=== PATIENT | male | born 1990 | race Caucasian/White ===

== ENCOUNTER → 2016-09-18 | Outpatient (CLI) | payer MEDICAID | LOC: CIMAGING 17:17 | PROVIDERS: ATTEND Family Medicine | DX: J40 Bronchitis, not specified as acute or chronic (principal); M41.9 Scoliosis, unspecified; K44.9 Diaphragmatic hernia without obstruction or gangrene | CPT/HCPCS: 71022-PO ==

== ENCOUNTER → 2017-07-18 | Outpatient (CLI) | payer MEDICAID | LOC: CIMAGING 10:28 | PROVIDERS: ATTEND Family Medicine | DX: J20.9 Acute bronchitis, unspecified (principal); M41.9 Scoliosis, unspecified; J98.6 Disorders of diaphragm; F88 Other disorders of psychological development; R91.8 Other nonspecific abnormal finding of lung field | CPT/HCPCS: 71046-PO ==

== ENCOUNTER → 2017-09-13 | Outpatient (CLI) | payer MEDICAID | LOC: CIMAGING 10:27 | PROVIDERS: ATTEND Family Medicine | DX: R10.9 Unspecified abdominal pain (principal); G80.0 Spastic quadriplegic cerebral palsy; G40.813 Lennox-Gastaut syndrome, intractable, with status epilepticus | CPT/HCPCS: 36415-PO; 71045-PO; 74018-PO; 80177-90 ==

== ENCOUNTER → 2017-12-17 | Outpatient (CLI) | payer MEDICAID ==
[~2017-12-17] MED LIST: IOPAMIDOL (ISOVUE-300) 100 ML BTL ONE
== END ==
LOC: CIMAGING 08:37
PROVIDERS: ATTEND Physician Assistant Medical
DX: R10.84 Generalized abdominal pain (principal); K44.9 Diaphragmatic hernia without obstruction or gangrene; N20.0 Calculus of kidney; Z87.19 Personal history of other diseases of the digestive system
CPT/HCPCS: 74177-PO; Q9967

== ENCOUNTER 2018-03-17 02:49 | Inpatient (IN) | payer MEDICAID ==
[2018-03-17] MEDS ORDERED: ALBUTEROL 3 ML DEYVIAL IH ONE (03:17)
[2018-03-17] MEDS ORDERED: NS 1,000 ML IV ONE (03:17)
--- NOTE | 2018-03-17 03:24 | EDPHY ---
H & P Stated Complaint: Disabled son, kavita, ? breathing problems Time Seen by Provider: 03/17/18 02:55 HPI/ROS: CHIEF COMPLAINT: Difficulty breathing, cough HISTORY OF PRESENT ILLNESS: This is a 28-year-old male with history of cerebral palsy, seizures, developmental delay, nonverbal who presents with his mother who is his full-time caregiver. Mother is concerned that the patient has had a cough starting at 4:00 a.m. This afternoon, 12 hr ago. He seems to have some difficulty breathing with nasal flaring and wet mucousy cough. She also noted that he was shaking and felt like he had a fever. She did give him some Tylenol prior to presentation. He has had a mild cough for about a week. No vomiting although the patient did have an episode of what sounds almost like regurgitation. No diarrhea. Patient has had prior history of pneumonia on several occasions. He did receive his influenza vaccination on February 27. REVIEW OF SYSTEMS: Unable to be obtained secondary to the patient's clinical condition. Mother reports she feels his mentation is at its baseline. PAST MEDICAL HISTORY: Cerebral palsy, history of seizures, severe developmental delay, nonverbal, nonambulatory. History of Igor fundoplication. Peg tube is in place. Patient takes no liquids orally. SOCIAL HISTORY: Lives with the mother who is his full-time caregiver. No smoke exposure. VITAL SIGNS Reviewed by me. The tachycardia between [id number], O2 sat 85%. Blood pressure 94/67. GENERAL: Patient is in a wheelchair. He is nonverbal. Extreme contractures of the upper extremities. Paradoxical breathing is noted. HEENT: Atraumatic. Eyes: Dysconjugate gaze. Pupils equal round reactive to light. Conjunctival injection bilaterally. No icterus. Mouth: Slightly dry mucous membranes. Thick mucus noted in the posterior pharynx. Neck: supple with no adenopathy. LUNGS: Coarse breath sounds throughout, no wheezes noted. No rales. Scattered rhonchi. CARDIAC: Tachycardic, regular. No rubs murmurs or gallops. ABDOMEN: Soft, no obvious tenderness. Peg tube in place. BACK: No obvious trauma. EXTREMITIES: No trauma. No edema. Contractures. NEURO: Alert, nonverbal. Intermittent generalized shaking, does not appear to be seizures. Intermittent nystagmus. SKIN: Warm to the touch. No rash noted. PSYCHIATRIC: Unable to assess. Source: Family Exam Limitations: Other - Personal History Current Tetanus/Diphtheria Vaccine: Unsure Current Tetanus Diphtheria and Acellular Pertussis (TDAP): Unsure - Medical/Surgical History Hx Asthma: No Hx Chronic Respiratory Disease: No Hx Diabetes: No Hx Cardiac Disease: No Hx Renal Disease: No Hx Cirrhosis: No Hx Alcoholism: No Hx HIV/AIDS: No Hx Splenectomy or Spleen Trauma: No Other PMH: Cerebral palsy, seizures, recurrent infections, recurrent intestinal problems; CPAP at night. Previous pneumonia - Social History Smoking Status: Never smoked Constitutional: Initial Vital Signs Temperature (C) 36.9 C 03/17/18 02:49 Heart Rate 105 H 03/17/18 02:49 Respiratory Rate 20 03/17/18 02:49 Blood Pressure 94/67 L 03/17/18 02:49 O2 Sat (%) 91 L 03/17/18 02:49 O2 Delivery Mode Room Air Allergies/Adverse Reactions: Penicillins Allergy (Mild, Verified 03/17/18 02:57) Rash Home Medications: Medication Instructions Recorded Baclofen 01/06/16 Banzel 01/06/16 Cetirizine 01/06/16 Cuvposa 01/06/16 FLUTICASONE PROPIONATE 01/06/16 Keppra 01/06/16 Miralax 17 gm (*) 01/06/16 Ondansetron HCl 01/06/16 Peptamen AF Liquid 01/06/16 Ranitidine HCl 01/06/16 Medical Decision Making - Diagnostics EKG Interpretation: 12-LEAD EKG: Please see the full report in [facility]. My interpretation: Sinus tachycardia. Imaging Results: Xray: Chest x-ray was obtained. I viewed the images myself on the PACS system. My interpretation of the images is: Difficult to interpret secondary to patient's body habitus. No obvious infiltrate identified by myself. The radiology interpretation is: Pending at this time. Imaging: I viewed and interpreted images myself ED Course/Re-evaluation: Severe Sepsis/Septic Shock Care Note The patient presents to the ED with respiratory infection identified as an acute infection. The patient did have evidence of end-organ dysfunction and met criteria for severe sepsis. This condition was identified by myself at 4: 00 a.m.. The patients vital signs are 126/77, 108, 94% on , 37.4 rectal. The patient has a venous lactic acid performed within 3 hours of the identification of severe sepsis which was found to be 3.7. The patient has blood cultures drawn and received levofloxacin, per the severe sepsis treatment protocol. The initial lactate was elevated and rechecked within 6 hours of the identification time of severe sepsis and found to be: 2.1 Review of the patient's old records demonstrates that in the past he has been admitted for similar symptoms of bronchitis/possible aspiration with respiratory distress and no pneumonia on chest x-ray. Course was discussed with Dr. Mora. Patient will be [facility] to [facility]. Bolus of fluids was begun. Patient received levofloxacin as he is allergic to PCN. Repeat lactic acid: 2.1 White count 12.4, bilirubin normal, creatinine 0.3. D-dimer less than 100. Bedside troponin 0.00. Urine dip: Trace leukocyte esterase. Urine microscopic ordered at [facility]. Urine culture pending. Blood cultures pending. Differential Diagnosis: Differential diagnosis for the patient's tactile fever and cough was considered including but not limited to viral versus bacterial bronchitis, asthma, aspiration, pulmonary emboli, upper respiratory infection, lower respiratory infection, and bronchospasm. Consult/Admit Bed Type: Dr. Meredith Polanco, [facility] surg - Data Points Laboratory Results: 03/17/18 03/17/18 03/17/18 03:42 03:40 03:34 PT INR POC Sodium POC Potassium POC Chloride POC Total CO2 POC BUN POC Creatinine POC Glucose POC Lactic Acid Prieto 3.7 mmol/L H mmol/L (0.7-2.1) POC Calcium POC Total Bilirubin 0.7 mg/dL mg/dL (0.1-1.4) POC GGT 115 IU/L H IU/L (5-65) POC AST 29 IU/L IU/L (17-59) POC ALT 16 IU/L L IU/L (21-72) POC Alk Phosphatase 97 IU/L IU/L (38-126) POC Troponin I 0.00 ng/mL ng/mL (0.00-0.08) POC Total Protein 7.7 g/dL g/dL (6.3-8.2) POC Albumin 3.7 g/dL g/dL (3.5-5.0) POC Amylase 56 IU/L IU/L (30-110) Urine RBC Urine WBC Ur Epithelial Cells 03/17/18 03/17/18 03/17/18 03:30 03:30 03:26 PT 13.8 SEC SEC (12.0-15.0) INR 1.04 (0.83-1.16) POC Sodium 136 mEq/L mEq/L (135-145) POC Potassium 4.0 mEq/L mEq/L (3.3-5.0) POC Chloride TNP POC Total CO2 28 mEq/L mEq/L (22-31) POC BUN 5 mg/dL L mg/dL (7-23) POC Creatinine 0.3 mg/dL L mg/dL (0.7-1.3) POC Glucose 102 mg/dL H mg/dL (70-100) POC Lactic Acid Prieto POC Calcium 9.5 mg/dL mg/dL (8.5-10.4) POC Total Bilirubin POC GGT POC AST POC ALT POC Alk Phosphatase POC Troponin I POC Total Protein POC Albumin POC Amylase Urine RBC NONE SEEN /hpf /hpf (0-3) Urine WBC 1-3 /hpf /hpf (0-3) Ur Epithelial Cells NONE SEEN /lpf /lpf (NONE-1+) Medications Given: Levofloxacin/Dextrose (Levaquin 750 Mg (Premix)) 150 mls @ 100 mls/hr IV EDNOW ONE PRN Reason: Protocol Stop: 03/17/18 05:40 Last Admin: 03/17/18 04:26 Dose: 150 mls Discontinued Medications Albuterol (Proventil Neb) 3 ml IH EDNOW ONE Stop: 03/17/18 03:18 Last Admin: 03/17/18 03:29 Dose: 3 ml Sodium Chloride (Ns) 1,000 mls @ 0 mls/hr IV ONCE ONE; Wide Open PRN Reason: Protocol Stop: 03/17/18 03:18 Last Admin: 03/17/18 03:30 Dose: 1,000 mls Sodium Chloride (Ns) 1,700 mls @ 3,400 mls/hr 30 ml/kg infuse over 30 min ( 1700 ml) IV EDNOW ONE PRN Reason: Protocol Stop: 03/17/18 04:45 Last Admin: 03/17/18 04:26 Dose: 1,700 mls Point of Care Test Results: CBC CBC Collection Date 03/17/18 CBC Collection Time 03:23 WBC 12.4 RBC 5.75 HGB 17.0 HCT 49.9 PLT 221 Neut # 10.8 Neut 87.1 LYMPH # 1.0 LYMPH 8.2 Other WBC # 0.6 Other WBC 4.7 MCV 86.8 Chemistry 03/17/18 03/17/18 03/17/18 03:42 03:34 03:26 POC Sodium 136 mEq/L mEq/L (135-145) POC Potassium 4.0 mEq/L mEq/L (3.3-5.0) POC Chloride TNP POC Total CO2 28 mEq/L mEq/L (22-31) POC BUN 5 mg/dL L mg/dL (7-23) POC Creatinine 0.3 mg/dL L mg/dL (0.7-1.3) POC Glucose 102 mg/dL H mg/dL (70-100) POC Calcium 9.5 mg/dL mg/dL (8.5-10.4) POC Total Bilirubin 0.7 mg/dL mg/dL (0.1-1.4) POC GGT 115 IU/L H IU/L (5-65) POC AST 29 IU/L IU/L (17-59) POC ALT 16 IU/L L IU/L (21-72) POC Alk Phosphatase 97 IU/L IU/L (38-126) POC Troponin I 0.00 ng/mL ng/mL (0.00-0.08) POC Total Protein 7.7 g/dL g/dL (6.3-8.2) POC Albumin 3.7 g/dL g/dL (3.5-5.0) POC Amylase 56 IU/L IU/L (30-110) Blood Gas/Lactic Acid-Venous 03/17/18 03:40 POC Lactic Acid Prieto 3.7 mmol/L H mmol/L (0.7-2.1) D-Dimer D-Dimer Collection Date 03/17/18 D-Dimer Collection Time 03:23 D-Dimer (ng/ml) <100 Influenza PCR Flu Nasal Swab Collection Date 03/17/18 Flu Nasal Swab Collection Date 03/17/18 Flu Nasal Swab Collection Time 03:30 Flu Nasal Swab Collection Time 03:30 Influenza A Result Not Detected Influenza A Result Not Detected Influenza B Result Not Detected Influenza B Result Not Detected Liver Function Tests LFT Collection Date 03/17/18 LFT Collection Time 03:23 Urine Dip Collection Date 01/13/19 Collection Time 04:14 Specific [place] (1.002-1.030) 1.015 PH (5.0-7.5) 7.0 Leukocytes (Negative) Trace Nitrites (Negative) Negative Protein (Negative) Trace Glucose (Negative) Negative Ketones (Negative) Negative Urobilnogen (0.2-1.0 EU) 1.0 Bilirubin (Negative) Negative Blood (Negative) Negative Departure - Departure Disposition: [facility] Inpatient Acute Clinical Impression: Respiratory distress, Hypoxemia Fever Qualifiers: Fever type: unspecified Qualified Code(s): R50.9 - Fever, unspecified Condition: Fair
[2018-03-17] MEDS ORDERED: NS 1,700 ML IV ONE (04:16)
[2018-03-17 05:12] LABS: INR 1.04 (0.83-1.16); PROTIME(PATIENT) 13.8 SEC (12.0-15.0)
[2018-03-17] MEDS ORDERED: ONDANSETRON 4 MG/2 ML VIAL IVP PRN (08:28)
[2018-03-17] MEDS ORDERED: ONDANSETRON DISINTEGRATING 4 MG TAB PO PRN (08:28)
--- NOTE | 2018-03-17 09:28 | GHP ---
DATE OF ADMISSION: 03/17/2018 CHIEF COMPLAINT: Shortness of breath and cough. HISTORY OF PRESENT ILLNESS: A 28-year-old male with a history of cerebral palsy. He is essentially non-communicative. His mother states that over the last 12 hours, he developed a gurgling type noise , as well as in his lungs with some cough and also some noise in his belly. This is like previous pn eumonias. No noted fever. REVIEW OF SYSTEMS: Unable to be obtained, secondary to the patient's state. Mother says that he is having bowel movements normally. PAST MEDICAL HISTORY: 1. Cerebral palsy. 2. GERD. 3. Scoliosis. 4. Obstructive sleep apnea. 5. Sheldon-Gastaut syndrome with seizure disorder. MEDICATIONS: Reviewed. SOCIAL HISTORY: Lives with his mother. FAMILY HISTORY: Chronic kidney disease. PHYSICAL EXAMINATION: VITAL SIGNS: Afebrile, blood pressure is 126/71, heart rate 116, and oxygen s aturation 100% on 4 L. GENERAL: The patient is with obvious cerebral palsy. In no apparent distres s. HEENT: Moist mucous membranes. NECK: Supple. LUNGS: Some scattered rhonchi bilaterally. CAR DIOVASCULAR: Regular rate and rhythm. No murmurs or gallops. ABDOMEN: Positive bowel sounds. Sof t, nontender, and nondistended. No hepatosplenomegaly. EXTREMITIES: No clubbing, cyanosis, or catherine a. SKIN: Without rash. Warm, dry, and intact. LABS: was elevated at 3.7. Chemistries normal. LFTs were essentially normal. No CBC wa s done. IMAGING: Chest x-ray is very difficult to interpret, as he is rotated with some lungs both compresse d. Rods are noted in the spine. ASSESSMENT: This is a 28-year-old male with cerebral palsy, with probable pneumonia. PLAN: 1. Pneumonia. We will treat with Levaquin at this point. Aspiration can be a consideration, but we will see how he does with just on Levaquin community-acquired pneumonia. 2. Cerebral palsy. 3. Sepsis. The patient's lactate was elevated coming in. He has received IV fluids per protocol. Lactate has now normalized. We will check another 1 though to make sure this continues to normalize. His tachycardia, I look back at [place], it looks like he is tachycardic at times, even in the off ice, and so I would not use that as a marker of sepsis. /[id number]/MODL
[2018-03-17 09:32] LABS: PLATELET COUNT 195 10^3/uL (150-400)
[2018-03-17] MEDS: IPRATROPIUM/ALBUTEROL 3 ML DEYVIAL IH SCH ×3 (11:03→20:07)
--- NOTE | 2018-03-17 11:34 | PDMN ---
Medical Necessity Medical necessity: Pt meets INPT criteria per MD as of 03/17/18 and [id number] Pneumonia, Community Acquired (est. LOS >2 MN for eval/tx of pneumonia, SOB, elevated lactate, r/o sepsis).
--- NOTE | 2018-03-17 11:57 | ASMTCMCOM ---
CM Note CM Note Notes: Patient admitted w SOB and cough; imaging shows PNA. He has a hx of cerebral palsy. I spoke with his mother Umu who is primary caregiver. She receives compensation through the [employer] Family Caregiver Program to be patient's MD DO [facility]. Her mother is also a caregiver for patient, compensated through the [employer] program. They do a great job. I anticipate that patient will d/c home with them when medically stable. Date Signed: 03/17/2018 11:56 AM Electronically Signed By:Alysia Prakash RN
[2018-03-17] MEDS: ENOXAPARIN 30 MG/0.3 ML SYR SC SCH (12:50)
[2018-03-17] MEDS: guaiFENesin 200 MG/10 ML UDL PO SCH ×3 (12:51→21:51)
--- NOTE | 2018-03-17 14:05 | HOSPPROG ---
Hospitalist Progress Note Assessment/Plan: Chito is a 28 y/o male w cerebral palsy. He is non-communicative. His mom noted he was making some gurgling type noises and brought him to the ER for further evaluation. *probable pna -chest x ray is diff to interpret due to his body habitus -Levaquin -will check a procalcitonin level and respiratory panel -he is on 7 liters of oxygen -may need to get a CT of his chest if not improving *sepsis -lactate was elevated on admission and improved w hydration *tachycardia -hx of this *cerebral palsy -his mom does complete care for him at home *gerd -resumed PPI *MICHAEL -CPAP *Andrew-Gastaut syndrome w seizure disorder, -resumed home meds *Plan: met w the patient's mom w an tack cleaner, plan discussed and reviewed. Dietary to see to restart tube feedings. >30 minutes seeing patient and following up with family, nursing and caring for the patient. Subjective: Chito is non verbal, his mom says he is not in pain. Objective: Vital Signs Temp Pulse Resp BP Pulse Ox 36.7 C 98 20 119/80 7 L 03/17/18 07:31 03/17/18 11:03 03/17/18 11:03 03/17/18 07:31 03/17/18 11:03 Laboratory Results 03/17/18 09:24 03/17/18 09:24 03/16/18 03/17/18 03/18/18 05:59 05:59 05:59 Intake Total 1850 Balance 1850 PT 13.8 SEC (12.0-15.0) 03/17/18 03:30 INR 1.04 (0.83-1.16) 03/17/18 03:30 - Physical Exam Constitutional: chronically ill appearing Cardiovascular: regular rate and rhythym Respiratory: no respiratory distress, reduced air movement Gastrointestinal: normoactive bowel sounds Genitourinary: barba in urethra Skin: warm Musculoskeletal: other (legs in a frog like position) Neurologic: other (alert but stares) ICD10 Worksheet Patient Problems: Problems Problem Status Onset Fever Acute Hypoxemia Acute Respiratory distress Acute
[2018-03-17] MEDS ORDERED: DIAZEPAM TUBE PRN (14:29)
[2018-03-17] MEDS: NS 1,000 ML IV SCH (16:56)
[2018-03-17] MEDS: ACETAMINOPHEN 325 MG TAB PO PRN (19:02)
[2018-03-17] MEDS: RUFINAMIDE 200 MG TUBE SCH (21:37)
[2018-03-17] MEDS: GLYCOPYRROLATE 1 MG TUBE SCH (21:38)
[2018-03-17] MEDS: LEVETIRACETAM PO SCH (21:38)
[2018-03-17] MEDS: CLOBAZAM 10 MG TUBE SCH (21:39)
[2018-03-17] MEDS: CETIRIZINE 10 MG TAB TUBE SCH (21:51)
[2018-03-18] MEDS: IPRATROPIUM/ALBUTEROL 3 ML DEYVIAL IH SCH ×4 (03:52→20:22)
[2018-03-18] MEDS: NS 1,000 ML IV SCH (05:10)
--- NOTE | 2018-03-18 08:32 | HOSPPROG ---
Hospitalist Progress Note Assessment/Plan: Chito is a 28 y/o male w cerebral palsy. He is non-communicative. His mom noted he was making some gurgling type noises and brought him to the ER for further evaluation. *probable pna -chest x ray is diff to interpret due to his body habitus -Levaquin-will continue with such good improvement - procalcitonin level is low and respiratory panel is negative -he is on room air this morning *sepsis -lactate was elevated on admission and improved w hydration *tachycardia -hx of this *cerebral palsy -his mom does complete care for him at home -reviewed his care w the urban forester, he is not getting enough calories at home; will be sure her instructions are given on dc, also; she is recommending a feeding pump to help Chito get the calories he needs *gerd -resumed PPI *MICHAEL -CPAP *Andrew-Gastaut syndrome w seizure disorder, -resumed home meds *Plan: If continues to do well overnight, will dc home tomorrow Subjective: Chito is non-verbal. Per his mom he has been coughing up more secretions. Objective: Vital Signs Temp Pulse Resp BP Pulse Ox 36.3 C 51 L 16 96/59 L 98 03/18/18 08:00 03/18/18 08:00 03/18/18 08:00 03/18/18 08:00 03/18/18 08:00 Microbiology 03/17/18 15:17 Respiratory Panel (PCR) - Final Nasal, Sinus - Anaerobic Tube/Swab No Organism Detected By Pcr Laboratory Results 03/18/18 06:39 03/18/18 06:44 03/17/18 03/18/18 03/19/18 05:59 05:59 05:59 Intake Total 1850 1330 Balance 1850 1330 PT 13.8 SEC (12.0-15.0) 03/17/18 03:30 INR 1.04 (0.83-1.16) 03/17/18 03:30 - Physical Exam Constitutional: chronically ill appearing Cardiovascular: regular rate and rhythym Respiratory: no respiratory distress, reduced air movement, bronchial breath sounds Gastrointestinal: normoactive bowel sounds Genitourinary: barba in urethra Skin: warm Neurologic: other (alert) ICD10 Worksheet Patient Problems: Problems Problem Status Onset Fever Acute Hypoxemia Acute Respiratory distress Acute
[2018-03-18] MEDS: guaiFENesin 200 MG/10 ML UDL PO SCH ×3 (09:25→22:04)
[2018-03-18] MEDS: ENOXAPARIN 30 MG/0.3 ML SYR SC SCH (09:25)
[2018-03-18] MEDS: POLYETHYLENE GLYCOL 3350 17 GM PKT TUBE SCH (09:25)
[2018-03-18] MEDS: LEVETIRACETAM PO SCH (09:26)
[2018-03-18] MEDS: FLUTICASONE NASAL 120 SPRAYS/16 GM MDI EACHNARE SCH (09:26)
[2018-03-18] MEDS: CLOBAZAM 10 MG TUBE SCH (09:27)
[2018-03-18] MEDS: RUFINAMIDE 200 MG TUBE SCH ×2 (09:28→22:03)
[2018-03-18] MEDS: GLYCOPYRROLATE 1 MG TUBE SCH ×2 (09:28→22:02)
[2018-03-18] MEDS: LEVETIRACETAM TUBE SCH (22:02)
[2018-03-18] MEDS: CETIRIZINE 10 MG TAB TUBE SCH (22:03)
[2018-03-19] MEDS: CLOBAZAM 10 MG TUBE SCH ×2 (00:34→09:57)
[2018-03-19] MEDS: IPRATROPIUM/ALBUTEROL 3 ML DEYVIAL IH SCH ×2 (05:41→10:22)
[2018-03-19 08:22] VITALS: BP 121/75
[2018-03-19] MEDS: FLUTICASONE NASAL 120 SPRAYS/16 GM MDI EACHNARE SCH (08:29)
[2018-03-19] MEDS: ENOXAPARIN 30 MG/0.3 ML SYR SC SCH (08:29)
[2018-03-19] MEDS: GLYCOPYRROLATE 1 MG TUBE SCH (08:29)
[2018-03-19] MEDS: POLYETHYLENE GLYCOL 3350 17 GM PKT TUBE SCH (08:29)
[2018-03-19] MEDS: guaiFENesin 200 MG/10 ML UDL PO SCH (08:29)
[2018-03-19] MEDS: RUFINAMIDE 200 MG TUBE SCH (08:29)
[2018-03-19] MEDS: ACETAMINOPHEN 325 MG TAB PO PRN (08:29)
[2018-03-19] MEDS: LEVETIRACETAM TUBE SCH (08:30)
--- NOTE | 2018-03-19 08:31 | HOSPPROG ---
Hospitalist Progress Note Assessment/Plan: Chito is a 28 y/o male w cerebral palsy. He is non-communicative. His mom noted he was making some gurgling type noises and brought him to the ER for further evaluation. *probable pna -chest x ray is diff to interpret due to his body habitus -Levaquin-will continue with such good improvement - procalcitonin level is low and respiratory panel is negative -he is on room air this morning *sepsis -lactate was elevated on admission and improved w hydration *tachycardia -hx of this *cerebral palsy -his mom does complete care for him at home -reviewed his care w the electrician's assistant, he is not getting enough calories at home; will be sure her instructions are given on dc, also; she is recommending a feeding pump to help Chito get the calories he needs *gerd -resumed PPI *MICHAEL -CPAP *Andrew-Gastaut syndrome w seizure disorder, -resumed home meds *Plan: dc home, lungs much improved compared to yesterday Subjective: Chito is non responsive, his mom said he slept better last night. Objective: Vital Signs Temp Pulse Resp BP Pulse Ox 36.6 C 70 18 121/75 H 95 03/19/18 08:00 03/19/18 08:00 03/19/18 08:00 03/19/18 08:00 03/19/18 08:00 Laboratory Results 03/18/18 06:39 03/18/18 10:30 03/18/18 03/19/18 03/20/18 05:59 05:59 05:59 Intake Total 1850 3915 Balance 1850 3915 PT 13.8 SEC (12.0-15.0) 03/17/18 03:30 INR 1.04 (0.83-1.16) 03/17/18 03:30 - Physical Exam Constitutional: chronically ill appearing Cardiovascular: regular rate and rhythym Respiratory: no respiratory distress, bronchial breath sounds Genitourinary: barba in urethra Skin: warm Neurologic: other (awake) ICD10 Worksheet Patient Problems: Problems Problem Status Onset Fever Acute Hypoxemia Acute Respiratory distress Acute
--- NOTE | 2018-03-19 10:09 | GDS ---
DISCHARGE DIAGNOSES: 1. Probable pneumonia. Suspect this is viral. 2. Sepsis. 3. Tachycardia. 4. Cerebral palsy. 5. Gastroesophageal reflux disease. 6. Obstructive sleep apnea. 7. [place]-Gastaut syndrome with seizure disorder. HISTORY: Briefly, the patient is a 28-year-old male with cerebral palsy. He is essentially noncommu nicative secondary to cerebral palsy. His mom brought him in because he had some gurgling type noise s and brought him to the ER for further evaluation. HOSPITAL COURSE: 1. Probable pneumonia. His procalcitonin level is low. His respiratory panel is negative. He is d oing markedly better. I suspect he was also dehydrated. We will discharge him on 2 more days of Lev aquin with such marked improvement. 2. Sepsis. Lactate was elevated on admission but improved with hydration. 3. Tachycardia, history of this. 4. Cerebral palsy. His mom does complete care for him. The dietitian met with her in regard to his tube feedings. 5. Gastroesophageal reflux disease. PPI. 6. Obstructive sleep apnea, on CPAP. 7. Andrew-Gastaut syndrome with seizure disorder. Home medications resumed. DISCHARGE CONDITION: Stable. Blood pressure is 121/75, heart rate of 70, respiratory rate of 18. O 2 saturation on 3 L at CPAP is 95%. Temperature is 36.6 Celsius. DISCHARGE MEDICATIONS: Please see the EMR. DISCHARGE INSTRUCTIONS: Reviewed his antibiotic with the mom. Also, if he develops fever, chills, r eturn to the ER. In addition, it has been written out in detail about his daily tube feedings to inc rease his caloric intake. Greater than 30 minutes discharging and coordinating his care. Copy requested to: PCP /[id number]/MODL
--- NOTE | 2018-03-19 15:59 | ASMTLACE ---
LACE Length of stay for Answers: 3 days current admission Acuity / Level of Answers: Yes Care: Did the patient have an inpatient admission? Comorbidities - select Answers: Other Notes: CP; GERD all that apply # of Emergency department Answers: 1-2 visits in the last 6 months Score: 8 Date Signed: 03/19/2018 03:58 PM Electronically Signed By:CARINE Valverde
--- NOTE | 2018-03-19 16:01 | ASMTCMCOM ---
CM Note CM Note Notes: Pt medically stable for d/c with family who are also caregivers. No CM d/c needs identified. Date Signed: 03/19/2018 04:00 PM Electronically Signed By:CARINE Valverde
--- NOTE | 2018-03-19 16:08 | CPEKG ---
Test Reason : OPEN Blood Pressure : / mmHG Vent. Rate : 105 BPM Atrial Rate : 106 BPM P-R Int : 114 ms QRS Dur : 083 ms QT Int : 336 ms P-R-T Axes : 024 147 059 degrees QTc Int : 445 ms Sinus tachycardia Probable right ventricular hypertrophy Confirmed by Pham De Dios ([id number]) on 03/19/2018 4:07:51 PM Referred By: Confirmed By:Pham De Dios
== END 2018-03-19 12:39 | disposition home or self-care (01) | DRG 720 ==
LOC: CED 02:49 → CEDHOLD 04:15 → F3N 06:24
PROVIDERS: ADMIT Internal Medicine; ATTEND Internal Medicine
DX: A41.9 Sepsis, unspecified organism (principal); J12.9 Viral pneumonia, unspecified; E86.0 Dehydration; K21.9 Gastro-esophageal reflux disease without esophagitis; G47.33 Obstructive sleep apnea (adult) (pediatric); G80.9 Cerebral palsy, unspecified; G40.812 Lennox-Gastaut syndrome, not intractable, without status epilepticus
CPT/HCPCS: 71046-PO; 80048-ER; 80076-ER; 82150-ER; 83605-ER; 84484-ER; 96361-ER; 96365; 96366-ER; J1650; J1956; J7613